=== PATIENT | female | born 1995 ===

== ENCOUNTER 2019-09-20 15:47 | Outpatient (CLI) | payer BC ==
[~2019-09-20] VITALS: Ht 165.1 cm; Wt 110.0 kg
--- NOTE | 2019-09-20 15:40 | NUR ---
SALOMÓN ESTRADA I presented to unit via from ED, accompanied by self, with c/o FELL ON ICE. SALOMÓN ESTRADA I weighed, gowned, voided, and to bed. EFHM and TOCO applied, VS taken. SALOMÓN ESTRADA I oriented to bed controls, call light, TV, heat, and A/C controls.
--- NOTE | 2019-09-20 16:08 | NUR ---
dr castillo notified of patient arrival, c/o and status. monitor observantly for 4 hrs. call with changes or contractions.
[2019-09-20 16:45] LABS: BILIRUBIN,URINE NEGATIVE (NEGATIVE); CLARITY,URINE CLEAR; COLOR,URINE YELLOW; GLUCOSE, URINE (UA) NEGATIVE (NEGATIVE); KETONES,URINE NEGATIVE (NEGATIVE); LEUKOCYTE ESTERASE ,URINE NEGATIVE (NEGATIVE); NITRITE,URINE NEGATIVE (NEGATIVE); PROTEIN,URINE NEGATIVE (NEGATIVE)
--- NOTE | 2019-09-20 16:50 | NUR ---
resting semifowler watching TV, smiling and talking animated with RN, denies further need or c/o. fresh ice water placed at bedside, reviewed fhr tracing with patient, verbalized understanding.
[2019-09-20 16:54] LABS: BACTERIA,URINE FEW /HPF
[2019-09-20 16:55] VITALS: BP 127/75
[2019-09-20 19:50] VITALS: BP 123/81
[2019-09-20 19:59] VITALS: BP 123/81
--- NOTE | 2019-09-21 08:22 | Physician Query-Final Dx ---
LINDSAY MCCARTHY 09/21/19 0822: Clinic Account Progress/Dx Physician Query: Please give diagnosis Please include # weeks gestation Date of Service Sep 20, 2019 at 15:47 MENG BILLY MD 09/21/19 1818: Clinic Account Progress/Dx DIAGNOSIS: Diagnosis False labor at 36 weeks gestation LINDSAY MCCARTHY Sep 21, 2019 08:22 MENG ANTON MD Sep 21, 2019 18:18 POS
== END 2019-09-20 19:59 | disposition home or self-care (01) ==
LOC: WSo 15:47 → LDRP 15:49 → WSo 19:59
PROVIDERS: ATTEND Obstetrics & Gynecology
DX: O47.03 False labor before 37 completed weeks of gestation, third trimester (principal); Z3A.36 36 weeks gestation of pregnancy
CPT/HCPCS: 81000; 87088; 99213

== ENCOUNTER 2019-10-06 00:42 | Inpatient (IN) | payer BC ==
[~2019-10-06] VITALS: Ht 165.1 cm; Wt 111.5 kg
[2019-10-06] VITALS (56 sets, daily range): BP systolic 96–139; BP diastolic 46–84
--- NOTE | 2019-10-06 07:00 | NUR ---
SALOMÓN ESTRADA I presented to unit via AMBULATORY FROM HOME, accompanied by SIGNIFICANT OTHER, FOR SCHEDULED INDUCTION OF LABOR. SALOMÓN ESTRADA I weighed, gowned, voided, and to bed. EFHM and TOCO applied, VS taken. SALOMÓN ESTRADA I oriented to bed controls, call light, TV, heat, and A/C controls.
[2019-10-06] MEDS ORDERED: D5 LR IV SOLUTION 1,000 ML IV ONE (07:03)
[2019-10-06] MEDS ORDERED: OXYTOCIN/NORMAL SALINE 500 ML IV SCH ×2 (07:42→20:37)
[2019-10-06] MEDS ORDERED: OXYTOCIN/NORMAL SALINE 500 ML IV ONE (07:44)
[2019-10-06] MEDS ORDERED: WATER (STERILE) FOR INJECTION 20 ML ONE (07:44)
[2019-10-06] MEDS ORDERED: AMPICILLIN FOR IV USE 2,000 MG VIAL ONE (07:44)
[2019-10-06] MEDS ORDERED: AMPICILLIN FOR IV USE 2,000 MG in WATER (STERILE) FOR INJECTION 14.8 ML IV NR (07:45)
--- NOTE | 2019-10-06 07:48 | History & Physical ---
History and Physical Date Seen by Provider: Oct 06, 2019 Time Seen by Provider: 07:46 This patient is a 24-year-old 1 white female with an EDC of 12 [phone] putting her at 38 weeks gestation. Her is complicated by thrombocytopenia. She presents now for induction of labor. Her GBS culture was positive after 35 weeks gestation. She denies rupture membranes or bleeding. She has occasional contractions and filled baby moving. She's had no other problems with this . Allergies are none Medications are vitamins Medical social and surgical histories are per the antepartum record HEENT exam is normal Neck is supple no lymphadenopathy no thyromegaly Abdomen is gravid soft nontender nondistended Extremities show no clubbing cyanosis. There is no Homans sign. Pelvic exam is pending Lab work is pending patient's platelet count on August 06, 2019 was 104 Assessment and plan 38 weeks gestation with thrombocytopenia and a GBS positive culture. Patient will be induced with Pitocin under the protection of ampicillin for GBS prophylaxis we anticipate a vaginal delivery but would be prepared for if needed 38 week gestation with thrombocytopenia Allergies and Home Medications Allergies Coded Allergies: No Known Drug Allergies (Unverified , 09/20/19) Home Medications No Active Prescriptions or Reported Meds Patient Home Medication List Home Medication List Reviewed: Yes MENG BILLY MD Oct 06, 2019 07:48 POS
[2019-10-06 07:57] LABS: BASOPHILS % (AUTO) 0 % (0-10); EOSINOPHILS # (AUTO) 0.1 10^3/uL (0.0-0.3); EOSINOPHILS % (AUTO) 0 % (0-10); HEMATOCRIT 31 % (35-52); HEMOGLOBIN 9.7 G/DL (11.5-16.0); LYMPHOCYTES # (AUTO) 1.5 X 10^3 (1.0-4.0); LYMPHOCYTES % (AUTO) 13 % (12-44); MEAN CORPUSCULAR HEMOGLOBIN 24 PG (25-34); MEAN CORPUSCULAR HGB CONC 31 G/DL (32-36); MEAN CORPUSCULAR VOLUME 76 FL (80-99); MONOCYTES # (AUTO) 0.8 X 10^3 (0.0-1.0); MONOCYTES % (AUTO) 7 % (0-12); NEUTROPHILS # (AUTO) 9.7 X 10^3 (1.8-7.8); NEUTROPHILS % (AUTO) 80 % (42-75); PLATELET COUNT 161 10^3/uL (130-400); RED CELL DISTRIBUTION WIDTH 15.8 % (10.0-14.5); WHITE BLOOD COUNT 12.1 10^3/uL (4.3-11.0)
[2019-10-06] MEDS: D5 LR IV SOLUTION 1,000 ML IV SCH ×3 (07:57→23:29)
--- NOTE | 2019-10-06 10:11 | NUR ---
THIS RN GIVES DR BILLY AN UPDATED PT REPORT. SVE NO CHANGE. UC 2-3 MIN. PITOCIN RATE AT 16. NO NEW ORDERS RECEIVED.
--- NOTE | 2019-10-06 13:00 | NUR ---
dr castillo updated on pt report. no new orders
[2019-10-06] MEDS ORDERED: SUFENTA 0.6MCG/ML BUPIVA 0.125 100 ML ONE (13:04)
[2019-10-06] MEDS: AMPICILLIN FOR IV USE 1,000 MG in WATER (STERILE) FOR INJECTION 7.4 ML IV SCH ×2 (13:13→16:30)
[2019-10-06] MEDS: LACTATED RINGERS 1,000 ML IV SCH ×2 (13:15→18:37)
[2019-10-06] MEDS ORDERED: ONDANSETRON 4 MG/2 ML (SDV) Z0FRAN IV PRN (14:00)
[2019-10-06] MEDS ORDERED: METOCLOPRAMIDE INJ 10 MG/2 ML (REGLAN) IV PRN (14:00)
[2019-10-06] MEDS ORDERED: NALOXONE 0.4 MG/ML 1 ML (NARCAN) VIAL IV PRN ×2 (14:00)
[2019-10-06] MEDS ORDERED: diphenhydrAMINE 50 MG/ML INJ (BENADRYL) IV PRN (14:00)
[2019-10-06] MEDS ORDERED: EPIDURAL (SUFENTA 0.6MCG/ML BUPIVA 0.125%) 100 ML BAG EPI SCH (14:00)
--- NOTE | 2019-10-06 16:05 | NUR ---
dr castillo updated on pt report pitocin on 38, sve no change /-, uc pattern. dr castillo wants rn to increase to 40 then check cervix at 1700, call with results.
--- NOTE | 2019-10-06 17:10 | NUR ---
this rn calls dr shahid with updated pt report. 2. dr wants rn to turn pitocin off at this time, continue to monitor uc pattern, recheck in 1 hr.
--- NOTE | 2019-10-06 18:07 | NUR ---
dr castillo at bedside to discuss plan of care with pt and SO. primary CS has been declared at 1810. this rn notifies house supp and placed orders. rn preps pt for surgery and obtains consent. questions answered by rn.
[2019-10-06] MEDS ORDERED: DOCU-143 PO (18:20)
[2019-10-06] MEDS ORDERED: OXYC1TAB12 PO (18:20)
[2019-10-06] MEDS ORDERED: IBUP-1780 PO (18:20)
--- NOTE | 2019-10-06 18:20 | Discharge Instructions ---
Discharge Instructions Discharge Medications New, Converted or Re-Newed RX: RX on Chart Patient Instructions Return to The Hospital For: As directed Activity & Diet Discharge Diet: No Restrictions Activity as Tolerated: No Orders-Post D/C & Referrals Follow Up Appt: RTC 1 week for incision check. Call to make follow up appt. for patient in 4 weeks. Wound Care: Remove karen, apply benzoin and steri strips. Activity Per routine post instructions. Please call in RX to patient pharmacy. Diet as tolerated Patient may shower or tub bathe as desired. Continue home meds MENG BILLY MD Oct 06, 2019 18:20 POS
[2019-10-06] MEDS ORDERED: METOCLOPRAMIDE INJ 10 MG/2 ML (REGLAN) ONE (18:23)
[2019-10-06] MEDS ORDERED: CITRIC ACID/SOB CIT (BICITRA) 30 ML UDC ONE (18:23)
[2019-10-06] MEDS ORDERED: FAMOTIDINE 20MG/2ML IV (PEPCID) ONE (18:24)
[2019-10-06] MEDS ORDERED: ceFAZolin 2 GM IV Premixed 50 ML ONE (18:26)
[2019-10-06] MEDS ORDERED: metroNIDAZOLE 500MG/100ML IVPB 100 ML ONE (18:26)
[2019-10-06] MEDS ORDERED: ceFAZolin INJECTION 2,000 MG in WATER (STERILE) FOR INJECTION 10 ML IV ONE (18:30)
[2019-10-06] MEDS ORDERED: METOCLOPRAMIDE INJ 10 MG/2 ML (REGLAN) IV ONE (18:30)
[2019-10-06] MEDS ORDERED: metroNIDAZOLE 500MG/100ML IVPB 100 ML IV ONE (18:30)
[2019-10-06] MEDS ORDERED: FAMOTIDINE 20MG/2ML IV (PEPCID) IV ONE (18:30)
[2019-10-06] MEDS ORDERED: CATHETER FLUSH 10 ML SYR IV PRN (18:30)
[2019-10-06] MEDS ORDERED: CITRIC ACID/SOB CIT (BICITRA) 30 ML UDC PO ONE (18:30)
[2019-10-06] MEDS ORDERED: LIDOCAINE PF 2% 5 ML (XYLOCAINE) VIAL ONE (18:36)
[2019-10-06] MEDS ORDERED: KETAMINE/NaCl 50 MG/5 ML SYRINGE (ED ONLY) ONE (18:52)
--- NOTE | 2019-10-06 18:56 | NUR ---
pt transferred to OR at this time by bed with DIRECTOR OF WORKFORCE DEVELOPMENT and anesthesia staff. FOB gowning in room. this rn answers questions. directs fob to sit outside of OR until ready for him to sit at bedside with pt during surgery
--- NOTE | 2019-10-06 19:00 | NUR ---
pt report given to rain gordillo rn
[2019-10-06] MEDS ORDERED: fentaNYL INJECTION 100 MCG/2 ML AMP ONE ×2 (19:25)
[2019-10-06] MEDS ORDERED: BUPIVACAINE 0.5% 30 ML (SENSORCAINE) VIAL ONE (19:30)
--- NOTE | 2019-10-06 20:08 | OPERATIVE REPORT ---
DATE OF SERVICE: 10/06/2019 PREOPERATIVE DIAGNOSES: Term at 38 weeks' gestation with failure to progress in labor and a history of thrombocytopenia. POSTOPERATIVE DIAGNOSES: Term at 38 weeks' gestation with failure to progress in labor and a history of thrombocytopenia with CPD. OPERATIVE PROCEDURE: Primary low transverse delivery of a viable female with Apgars of 9 and 9 at 1 and 5 minutes respectively, weight of 7 pounds 1 ounce. Cord blood pH of 7.28 and a time of 19:20. OPERATIVE DESCRIPTION: With the patient in supine position under satisfactory epidural analgesia, the patient was prepped and draped in the usual fashion for abdominal surgery. Chester catheter was placed in the urinary bladder during labor that was left to dependent drainage. A Pfannenstiel incision made through skin with scalpel, the patient's abdomen entered in the usual manner. Bladder retractor placed in position, clean scalpel used to make a 4 cm hysterotomy incision transversely across the lower uterine segment that was extended by blunt dissection as well. A vigorous viable female was delivered via the uterine incision. Toth forceps were applied to facilitate the delivery. The infant was bulb suctioned on delivery of the head and again on completion of delivery. Umbilical cord was doubly clamped and cut and the passed to the pediatric nurse in attendance for delivery. Cord bloods were obtained. Placenta delivered spontaneously Gaines. It was normal with a 3-vessel cord. The uterus was exteriorized and wiped clean with a wet laparotomy sponge. Uterine incision closed with a running locked suture of 2-0 Vicryl. The uterus was quite atonic, quite boggy responding only minimally to the Pitocin. A modified B-Villanueva suture was placed using 2-0 chromic sutures in the usual modified fashion for a B-Villanueva. This compressed uterus nicely and controlled the blood loss at that point. The uterus was now returned to the abdominal cavity. All blood clot and debris removed from the abdominal cavity. Sponge and needle counts correct, hemostasis assured. The anterior parietal peritoneum was closed with running suture of 2-0 Vicryl. Rectus muscles were closed with 2-0 Vicryl, subcutaneous tissue with 2-0 Vicryl and the skin was stapled. Sponge and needle counts were correct on completion of the procedure. Estimated blood loss was 500 mL. The patient tolerated the procedure well and was transferred to the recovery room in stable condition. The had been taken stable to the full term nursery under the care of the pediatric nurse. Job ID: [id number] DocumentID: [id number] Dictated Date: 10/06/2019 19:46:16 Salesman/Owner Date: 10/06/2019 20:07:28 Dictated By: MENG BILLY MD
[2019-10-06] MEDS ORDERED: ONDANSETRON 4 MG/2 ML (SDV) Z0FRAN IVP PRN (20:45)
[2019-10-06] MEDS ORDERED: MEASLES,MUMPS,RUBELLA 1 EA INJ SC ONE (20:45)
[2019-10-06] MEDS ORDERED: TETANUS,DIPTH,PERTUSS P/F (BOOSTRIX) 0.5 ML VIAL IM ONE (20:45)
--- NOTE | 2019-10-06 21:00 | NUR ---
Pt. transferred to PP room 308 via bed from OB OR, accompanied by infant, S.O, and staff. Pt. oriented to room, call light, and thermostat. fresh ice water provided. PP folder given and explained. No s/s of distress noted. Visitors at bedside.
[2019-10-06] MEDS ORDERED: DOCUSATE SODIUM 100 MG (COLACE) CAP PO ONE (21:07)
[2019-10-06] MEDS ORDERED: KETOROLAC 30 MG/ML VIAL ONE (21:07)
[2019-10-06] MEDS: KETOROLAC 30 MG/ML VIAL IVP SCH (21:11)
[2019-10-06] MEDS: DOCUSATE SODIUM 100 MG (COLACE) CAP PO SCH ×2 (21:11→21:15)
[2019-10-06] MEDS: oxyCODONE/APAP 10/325MG (PERCOCET 10) TABLET PO PRN (21:46)
--- NOTE | 2019-10-06 23:00 | NUR ---
Pt. assisted up to bathroom, ambulated without difficulty. Positive void noted.
[2019-10-07] VITALS (14 sets, daily range): BP systolic 103–150; BP diastolic 56–86
--- NOTE | 2019-10-07 00:45 | NUR ---
Pt uses call light to get up to void, rn to bedside to assist, pt pulls bedding back, large amount of blood noted on gown, rn performs fundal massage, multiple large clots expressed, pink peripad saturated, mesh underwear saturated, white aurea pad saturated, clots slow, bleeding slows. RN leaves room, 0047 called per this rn with reports of bleeding and current iv infusion being maintenance flluids, orders for methergine IM X1 now and start a one time bag of pitocin at 100ml/hr at this time. Orders to update physician if bleeding persists. This rn voiced understanding.
[2019-10-07] MEDS ORDERED: METHYLERGONOVINE 0.2 MG/ML (METHERGINE) AMP ONE (00:50)
--- NOTE | 2019-10-07 01:20 | NUR ---
After inj, and pit initiation and continued fundal massage, noted ebl 970ml at this time. Will cont to monitor. Pt hurting, Pts primary RN Dieudonne RN admin medication, see emar. Pericare, pads changed, bleeding to be reevaluated again, pt connected to vs machine for 15minute readings. Current readings wnl, see int.
[2019-10-07] MEDS: oxyCODONE/APAP 10/325MG (PERCOCET 10) TABLET PO PRN ×3 (01:24→17:17)
[2019-10-07] MEDS ORDERED: OXYTOCIN/NORMAL SALINE 500 ML IV ONE (01:45)
[2019-10-07] MEDS ORDERED: METHYLERGONOVINE 0.2 MG/ML (METHERGINE) AMP IM ONE ×2 (01:45→02:15)
--- NOTE | 2019-10-07 01:50 | NUR ---
RN at bedside to reassess bleeding after 30 min. Pads changed and weight. Additional 100ml blood loss. 0158-This RN notified Dr. Rajan of 970ml EBL and most recent saturated pad being worn for 30min with an additional EBL of 100ml and patient needing something for pain. Orders received to repeat 0.2mg methergine injection, and demerol 150mg with 25mg phenergan IM for pain.
[2019-10-07] MEDS ORDERED: PROMETHAZINE INJ 25 MG/ML (PHENERGAN) AMP ONE (02:05)
[2019-10-07] MEDS ORDERED: MEPERIDINE (DEMEROL) INJ 100 MG/ML ONE (02:05)
[2019-10-07] MEDS ORDERED: MEPERIDINE (DEMEROL) INJ 100 MG/ML IM ONE (02:15)
[2019-10-07] MEDS ORDERED: PROMETHAZINE INJ 25 MG/ML (PHENERGAN) AMP IM ONE (02:15)
--- NOTE | 2019-10-07 02:30 | NUR ---
RN at bedside to reassess bleeding. Fundus firm without massage 1 below umbilicus, no clots expressed, scant bleeding.
--- NOTE | 2019-10-07 03:15 | NUR ---
RN at bedside to reassess patient bleeding. Fundus firm without massage,1 below umbilicus, no clots expressed, light bleeding. 85 EBL from 0200 to 0315.
--- NOTE | 2019-10-07 05:15 | NUR ---
Placed patient on bedpan due to complaints of dizziness but not able to void. Pericare and pads changed. 55 EBL from 0315 to 0530. Fundus firm, No clots noted.
--- NOTE | 2019-10-07 06:15 | NUR ---
Pt. ambulated to and from bathroom with standby assist without difficulty. Positive void noted. Pt. denied feeling like she was going to pass out. Light rubra bleeding, no clots noted.
[2019-10-07] MEDS: KETOROLAC 30 MG/ML VIAL IVP SCH (06:30)
[2019-10-07] MEDS: D5 LR IV SOLUTION 1,000 ML IV SCH (06:33)
--- NOTE | 2019-10-07 08:06 | Anesthesia-Regional Post-Op ---
Regional Patient Condition Mental Status: Alert, Oriented x3 Circulation: Same as Pre-Op Headache: Absent Sensation: Full Recovery Motor Block: Absent Post Op Complications Complications None Follow Up Care/Instructions Patient Instructions None needed. Anesthesia/Patient Condition Patient is doing well, no complaints, stable vital signs, no apparent adverse anesthesia problems. No complications reported per nursing. D/C home per [facility] Criteria: TRESSA De Dios CRNA Oct 07, 2019 08:06 POS
--- NOTE | 2019-10-07 08:51 | Progress Note ---
Standard Progress Note Progress Notes/Assess & Plan Date Seen by a Provider: Oct 07, 2019 Time Seen by a Provider: 08:46 Progress/Assessment & Plan This patient is without complaint. She is ambulating, voiding, tolerating oral intake well and has adequate pain control. She denies chest pain, denies shortness of breath, denies nausea vomiting, and denies headache, reports that her bleeding has essentially resolved. Vital Signs Date Time Temp Pulse Resp B/P (MAP) Pulse Ox O2 Delivery O2 Flow Rate FiO2 10/07/19 05:00 105 16 140/86 (104) 99 Room Air 10/07/19 04:05 37.2 94 16 138/71 (93) 98 Room Air 10/07/19 03:00 104 16 137/82 (100) 98 Room Air 10/07/19 02:45 110 16 150/86 (107) 99 Room Air 10/07/19 02:30 86 16 127/65 (85) 99 Room Air 10/07/19 02:15 83 16 130/83 (99) 99 Room Air 10/07/19 02:00 104 16 125/82 (96) 100 Room Air 10/07/19 01:45 86 16 118/82 (94) 98 Room Air 10/07/19 01:30 89 16 124/78 (93) 99 Room Air 10/07/19 01:05 88 16 109/56 (73) 98 Room Air 10/07/19 00:00 36.8 100 16 118/60 (79) 100 Room Air 10/06/19 22:00 37.1 80 18 135/61 (85) 100 Room Air 10/06/19 20:40 36.3 14 119/70 (86) 100 Room Air 10/06/19 20:25 36.2 22 119/72 (88) 100 Room Air 10/06/19 20:10 36.4 17 96/46 (63) 100 Room Air 10/06/19 19:55 36.2 12 114/50 (71) 100 Room Air 10/06/19 18:45 37.1 109 18 127/77 (94) Room Air 10/06/19 18:30 107 139/84 (102) Room Air 10/06/19 18:15 91 122/69 (86) Room Air 10/06/19 18:00 87 129/72 (91) Room Air 10/06/19 17:45 84 16 112/55 (74) Room Air 10/06/19 17:30 96 120/63 (82) Room Air 10/06/19 17:15 36.7 78 120/76 (91) Room Air 10/06/19 17:00 70 106/59 (75) Room Air 10/06/19 16:45 72 115/63 (80) Room Air 10/06/19 16:30 73 111/61 (78) Room Air 10/06/19 16:15 81 115/72 (86) Room Air 10/06/19 16:00 36.6 80 139/64 (89) Room Air 10/06/19 15:45 74 116/56 (76) Room Air 10/06/19 15:30 83 16 131/72 (91) Room Air 10/06/19 15:15 88 109/60 (76) Room Air 10/06/19 15:00 75 112/61 (78) Room Air 10/06/19 14:45 77 112/56 (74) Room Air 10/06/19 14:30 36.3 80 16 122/83 (96) 100 Room Air 10/06/19 14:25 95 139/70 (93) 100 Room Air 10/06/19 14:20 86 130/64 (86) 98 Room Air 10/06/19 14:15 94 125/62 (83) 98 Room Air 10/06/19 14:10 111 129/64 (85) 96 Room Air 10/06/19 14:05 73 127/66 (86) 100 Room Air 10/06/19 14:00 75 126/64 (84) 97 Room Air 10/06/19 13:57 81 129/57 (81) Room Air 10/06/19 13:54 90 130/71 (90) Room Air 10/06/19 13:51 103 128/67 (87) Room Air 10/06/19 13:48 109 134/75 (94) 100 Room Air 10/06/19 13:45 97 18 134/77 (96) 100 Room Air 10/06/19 13:30 86 130/72 (91) Room Air 10/06/19 13:15 36.4 74 122/72 (89) Room Air 10/06/19 13:00 74 135/77 (96) Room Air 10/06/19 12:45 81 18 117/76 (90) Room Air 10/06/19 12:30 Room Air 10/06/19 12:15 Room Air 10/06/19 12:00 78 121/65 (83) Room Air 10/06/19 11:45 79 120/64 (82) Room Air 10/06/19 11:30 83 118/57 (77) Room Air 10/06/19 11:15 36.7 88 128/64 (85) Room Air 10/06/19 11:00 82 120/66 (84) Room Air 10/06/19 10:45 73 115/69 (84) Room Air 10/06/19 10:30 98 16 133/60 (84) Room Air 10/06/19 10:15 73 122/69 (86) Room Air 10/06/19 10:00 75 131/71 (91) Room Air 10/06/19 09:45 91 119/79 (92) Room Air 10/06/19 09:30 74 120/64 (82) Room Air 10/06/19 09:15 36.3 71 125/64 (84) Room Air 10/06/19 09:00 82 118/62 (80) Room Air I & O 10/07/19 07:00 Intake Total 4025 ml Output Total 4670 ml Balance -645 ml Vital Signs are stable. Patient is afebrile. Her pulse is covering around 100 The abdomen is benign. The surgical incision is clean dry and intact. The uterus is firm below the umbilicus nontender. Extreme show no clubbing cyanosis. There is no Homans sign. There is some pretibial pitting edema that is normal. Assessment and plan operative day number 1 status post primary d elivery for failure to progress in labor. Normal blood loss for the however she did have significant uterine atony required a modified B Villanueva suture. Patient did experience significant blood loss after her surgical recovery - that responded to ecbolic medication. She will have routine convalescence care from this point MENG BILLY MD Oct 07, 2019 08:51 POS
[2019-10-07] MEDS: DOCUSATE SODIUM 100 MG (COLACE) CAP PO SCH ×2 (09:15)
--- NOTE | 2019-10-07 09:15 | NUR ---
initial shift assessment completed, see interventions for further. abd incision MG. clips D/I. incision edges well approximated, no sx's of infection noted.
--- NOTE | 2019-10-07 09:20 | NUR ---
assisted up to BR. scant vaginal bleeding noted on v-pad.
--- NOTE | 2019-10-07 09:30 | NUR ---
up to shower. s/o and remain @ side.
[2019-10-07] MEDS: IBUPROFEN 800 MG (MOTRIN) TAB PO SCH ×2 (12:45→17:18)
[2019-10-08 00:18] VITALS: BP 109/72
[2019-10-08] MEDS: IBUPROFEN 800 MG (MOTRIN) TAB PO SCH ×2 (00:19→06:21)
[2019-10-08] MEDS: DOCUSATE SODIUM 100 MG (COLACE) CAP PO SCH (00:19)
--- NOTE | 2019-10-08 07:55 | NUR ---
shift assessment completed. vss skin color pink tones. resp unlabored with no c/o's of shortness of breath. HRRR at 123 beats/min. abd soft with positive bowel sounds in all quads. abdominal incision clean dry and intact. pt moves all extremities actively. mild pitting edema pre tibial. pt reports pain level 3 when moving and zero when resting. reports pain as soreness but denies need for pain medication. appropriate bonding noted.
[2019-10-08 08:00] VITALS: BP 119/55
--- NOTE | 2019-10-08 08:00 | NUR ---
dr castillo here, exam done and pt may discharge to home
--- NOTE | 2019-10-08 08:23 | Progress Note ---
Standard Progress Note Progress Notes/Assess & Plan Date Seen by a Provider: Oct 08, 2019 Time Seen by a Provider: 08:22 Progress/Assessment & Plan This patient is without complaint. She is ambulating, voiding, tolerating oral intake well and has adequate pain control. She denies chest pain, denies shortness of breath, denies nausea vomiting, and denies headache, reports that her bleeding has essentially resolved. Vital Signs Date Time Temp Pulse Resp B/P (MAP) Pulse Ox O2 Delivery O2 Flow Rate FiO2 10/07/19 05:00 105 16 140/86 (104) 99 Room Air 10/07/19 04:05 37.2 94 16 138/71 (93) 98 Room Air 10/07/19 03:00 104 16 137/82 (100) 98 Room Air 10/07/19 02:45 110 16 150/86 (107) 99 Room Air 10/07/19 02:30 86 16 127/65 (85) 99 Room Air 10/07/19 02:15 83 16 130/83 (99) 99 Room Air 10/07/19 02:00 104 16 125/82 (96) 100 Room Air 10/07/19 01:45 86 16 118/82 (94) 98 Room Air 10/07/19 01:30 89 16 124/78 (93) 99 Room Air 10/07/19 01:05 88 16 109/56 (73) 98 Room Air 10/07/19 00:00 36.8 100 16 118/60 (79) 100 Room Air 10/06/19 22:00 37.1 80 18 135/61 (85) 100 Room Air 10/06/19 20:40 36.3 14 119/70 (86) 100 Room Air 10/06/19 20:25 36.2 22 119/72 (88) 100 Room Air 10/06/19 20:10 36.4 17 96/46 (63) 100 Room Air 10/06/19 19:55 36.2 12 114/50 (71) 100 Room Air 10/06/19 18:45 37.1 109 18 127/77 (94) Room Air 10/06/19 18:30 107 139/84 (102) Room Air 10/06/19 18:15 91 122/69 (86) Room Air 10/06/19 18:00 87 129/72 (91) Room Air 10/06/19 17:45 84 16 112/55 (74) Room Air 10/06/19 17:30 96 120/63 (82) Room Air 10/06/19 17:15 36.7 78 120/76 (91) Room Air 10/06/19 17:00 70 106/59 (75) Room Air 10/06/19 16:45 72 115/63 (80) Room Air 10/06/19 16:30 73 111/61 (78) Room Air 10/06/19 16:15 81 115/72 (86) Room Air 10/06/19 16:00 36.6 80 139/64 (89) Room Air 10/06/19 15:45 74 116/56 (76) Room Air 10/06/19 15:30 83 16 131/72 (91) Room Air 10/06/19 15:15 88 109/60 (76) Room Air 10/06/19 15:00 75 112/61 (78) Room Air 10/06/19 14:45 77 112/56 (74) Room Air 10/06/19 14:30 36.3 80 16 122/83 (96) 100 Room Air 10/06/19 14:25 95 139/70 (93) 100 Room Air 10/06/19 14:20 86 130/64 (86) 98 Room Air 10/06/19 14:15 94 125/62 (83) 98 Room Air 10/06/19 14:10 111 129/64 (85) 96 Room Air 10/06/19 14:05 73 127/66 (86) 100 Room Air 10/06/19 14:00 75 126/64 (84) 97 Room Air 10/06/19 13:57 81 129/57 (81) Room Air 10/06/19 13:54 90 130/71 (90) Room Air 10/06/19 13:51 103 128/67 (87) Room Air 10/06/19 13:48 109 134/75 (94) 100 Room Air 10/06/19 13:45 97 18 134/77 (96) 100 Room Air 10/06/19 13:30 86 130/72 (91) Room Air 10/06/19 13:15 36.4 74 122/72 (89) Room Air 10/06/19 13:00 74 135/77 (96) Room Air 10/06/19 12:45 81 18 117/76 (90) Room Air 10/06/19 12:30 Room Air 10/06/19 12:15 Room Air 10/06/19 12:00 78 121/65 (83) Room Air 10/06/19 11:45 79 120/64 (82) Room Air 10/06/19 11:30 83 118/57 (77) Room Air 10/06/19 11:15 36.7 88 128/64 (85) Room Air 10/06/19 11:00 82 120/66 (84) Room Air 10/06/19 10:45 73 115/69 (84) Room Air 10/06/19 10:30 98 16 133/60 (84) Room Air 10/06/19 10:15 73 122/69 (86) Room Air 10/06/19 10:00 75 131/71 (91) Room Air 10/06/19 09:45 91 119/79 (92) Room Air 10/06/19 09:30 74 120/64 (82) Room Air 10/06/19 09:15 36.3 71 125/64 (84) Room Air 10/06/19 09:00 82 118/62 (80) Room Air I & O 10/07/19 07:00 Intake Total 4025 ml Output Total 4670 ml Balance -645 ml Vital Signs are stable. Patient is afebrile. Her pulse is covering around 100 The abdomen is benign. The surgical incision is clean dry and intact. The uterus is firm below the umbilicus nontender. Extreme show no clubbing cyanosis. There is no Homans sign. There is some pretibial pitting edema that is normal. Assessment and plan operative day number 1 status post primary d elivery for failure to progress in labor. Normal blood loss for the however she did have significant uterine atony required a modified B Villanueva suture. Patient did experience significant blood loss after her surgical recovery - that responded to ecbolic medication. She will have routine convalescence care from this point October 08, 2019 Patient is without complaint. She is ambulating, voiding, tolerating oral intake well and has good pain control. Patient is requesting discharge home. Vital Signs Date Time Temp Pulse Resp B/P (MAP) Pulse Ox O2 Delivery O2 Flow Rate FiO2 10/08/19 00:18 36.9 95 18 109/72 (84) 98 Room Air 10/07/19 19:10 37.3 105 18 103/57 (72) 99 Room Air 10/07/19 15:00 36.4 112 18 127/72 (90) 97 Room Air 10/07/19 09:15 37.0 95 18 119/72 (88) 99 Room Air I & O 10/08/19 07:00 Intake Total 700 ml Balance 700 ml Vital signs are stable. Patient is afebrile. Fundus is firm below the umbilicus and nontender. The surgical incision is clean dry and intact. Extremities show clubbing cyanosis. There is no Homans sign. There is some pretibial pitting edema that is normal. Assessment and plan postoperative day number 2 status post primary delivery doing well. Plan is for discharge home with follow-up in clinic Final Diagnosis 38 week primary delivery MENG BILLY MD Oct 08, 2019 08:23 POS
--- NOTE | 2019-10-08 08:30 | NUR ---
pt up to shower, denies need for assistance.
--- NOTE | 2019-10-08 09:30 | NUR ---
karen removed and steri strips applied. pt reports office appointment for [phone] on friday for incision check
--- NOTE | 2019-10-08 11:15 | NUR ---
home care instructions reviewed with pt and S/O. pain medications reviewed. incision care reviewed as well as routine coarse. pt acknowledges understanding of instructions verbally and with her signature.
[2019-10-08 12:10] VITALS: BP 119/55
--- NOTE | 2019-10-08 12:10 | NUR ---
pt discharged to family vehicle accompanied by Tonie MCDONNELLsupervisor rides. belted in rear facing car seat
== END 2019-10-08 12:10 | disposition home or self-care (01) | DRG 787 ==
LOC: LDRP 06:45
PROVIDERS: ADMIT Obstetrics & Gynecology; ATTEND Obstetrics & Gynecology
PROC: 10D00Z1 Extraction of Products of Conception, Low, Open Approach (ICD-10-PCS; principal; 2019-10-06 18:58)
DX: O62.8 Other abnormalities of forces of labor (principal); O99.12 Other diseases of the blood and blood-forming organs and certain disorders involving the immune mechanism complicating childbirth; Z37.0 Single live birth; Z3A.38 38 weeks gestation of pregnancy; O99.824 Streptococcus B carrier state complicating childbirth; B95.1 Streptococcus, group B, as the cause of diseases classified elsewhere
CPT/HCPCS: 36415; 85025; 87081; 90707

== ENCOUNTER → 2021-09-19 | Outpatient (CLI) | payer BC ==
[~2021-09-19] MED LIST: DOCU-143 PO; IBUP-1780 PO; OXYC1TAB12 PO; PNV11TAB5 PO
== END ==
LOC: LABNPT 09:35
PROVIDERS: ATTEND Obstetrics & Gynecology
DX: R80.9 Proteinuria, unspecified (principal)
CPT/HCPCS: 82570; 84156

== ENCOUNTER 2021-09-24 05:31 | Outpatient (CLI) | payer MEDICAID ==
[~2021-09-24] VITALS: Ht 167.7 cm; Wt 100.0 kg
[~2021-09-24 05:31] MED LIST changes: -PNV11TAB5 PO
[2021-09-25] MEDS ORDERED: PNV11TAB5 PO (08:52)
== END 2021-09-25 09:04 | disposition home or self-care (01) ==
LOC: PREOP 05:31
PROVIDERS: ATTEND Obstetrics & Gynecology
DX: Z01.818 Encounter for other preprocedural examination (principal)

== ENCOUNTER 2021-10-01 05:55 | Inpatient (IN) | payer BC, MEDICAID ==
[2021-10-01] VITALS (10 sets, daily range): BP systolic 94–129; BP diastolic 55–84
[~2021-10-01] VITALS: Ht 167.7 cm; Wt 104.0 kg
[~2021-10-01 05:55] MED LIST changes: +PNV11TAB5 PO
[2021-10-01] MEDS ORDERED: ceFAZolin 2 GM IV Premixed 50 ML IV ONE (06:00)
[2021-10-01] MEDS ORDERED: FAMOTIDINE 20MG/2ML IV (PEPCID) IV ONE (06:15)
[2021-10-01] MEDS ORDERED: LACTATED RINGERS 1,000 ML IV PRN (06:15)
[2021-10-01] MEDS ORDERED: METOCLOPRAMIDE INJ 10 MG/2 ML (REGLAN) IV ONE (06:15)
[2021-10-01] MEDS ORDERED: CITRIC ACID/SOB CIT (BICITRA) 30 ML UDC PO ONE (06:15)
[2021-10-01 06:52] LABS: BASOPHILS % (AUTO) 0 % (0-10); HEMOGLOBIN 9.7 g/dL (11.5-16.0)
[2021-10-01 06:54] LABS: EOSINOPHILS # (AUTO) 0.1 10^3/uL (0.0-0.3); EOSINOPHILS % (AUTO) 1 % (0-10); HEMATOCRIT 32 % (35-52); LYMPHOCYTES # (AUTO) 1.8 10^3/uL (1.0-4.0); LYMPHOCYTES % (AUTO) 16 % (12-44); MEAN CORPUSCULAR HEMOGLOBIN 22 pg (25-34); MEAN CORPUSCULAR HGB CONC 30 g/dL (32-36); MEAN CORPUSCULAR VOLUME 74 fL (80-99); MONOCYTES # (AUTO) 0.8 10^3/uL (0.0-1.0); MONOCYTES % (AUTO) 7 % (0-12); NEUTROPHILS # (AUTO) 8.1 10^3/uL (1.8-7.8); NEUTROPHILS % (AUTO) 75 % (42-75); PLATELET COUNT 118 10^3/uL (130-400); WHITE BLOOD COUNT 10.8 10^3/uL (4.3-11.0)
[2021-10-01] MEDS: LACTATED RINGERS 1,000 ML IV PRN ×2 (07:01→07:27)
--- NOTE | 2021-10-01 07:13 | History & Physical-OB ---
OB - Chief Complaint & HPI Date/Time Date of Admission: Date of Admission: Oct 01, 2021 at 05:55 Date seen by a Provider: Oct 01, 2021 Time Seen by a Provider: 07:08 Chief Complaint/History OB-Reason for Admission/Chief: Section Hx : 2 Hx Para: 1 Expected Date of Delivery: Oct 16, 2021 Gestational Age in Weeks: 37 Gestational Age in Days: 6 Indication for : desires repeat Admission Nurse Assessment Rev: Yes History of Labs O pos Antibody neg RI RPR NR HBsAg NR HIV NR GC neg GBS pos Allergies and Home Medications Allergies Coded Allergies: No Known Drug Allergies (Unverified , 09/25/21) Patient Home Medication List Home Medication List Reviewed: Yes Oba046/FA/Omega3/Dha/Fish Oil ( Gummies) 1 Each Tab.chew, 1 EACH PO DAILY, (Reported) Entered as Reported by: KASIA MENARD on 09/25/21 0852 Discontinued Medications Docusate Sodium (Colace) 100 Mg Capsule, 100 MG PO BID Discontinued Reason: No Longer Taking Prescribed by: MENG PEREZ on 10/06/191819 Ibuprofen (Ibuprofen) 800 Mg Tablet, 800 MG PO Q6H PRN for PAIN Discontinued Reason: No Longer Taking Prescribed by: MENG PEREZ on 10/06/191819 Oxycodone HCl/Acetaminophen (Percocet 10-325 mg Tablet) 1 Each Tablet, 1 TAB PO Q4H PRN for PAIN-MODERATE Discontinued Reason: No Longer Taking Prescribed by: MENG PEREZ on 10/06/191819 OB - History Hx of Present Care: Yes Ultrasounds: Normal mid trimester US Obstetrical Complications: Other (Gestational thrombocytopenia) Medical Complications: None Delivery History Adverse Rxn to Tranfusion: No Patient Past Medical History n/a Social History/Family History 2nd Hand Smoke Exposure: No Immunizations Date of Influenza Vaccine: Sep 25, 2021 OB - Admission Exam Physical Exam Vitals: Vital Signs HEENT: NCAT Heart: Rhythm Normal Lungs: Clear Abdomen: Gravid Extremities: Normal Reflexes: Normal Heart Rate: 130's Accelerations: Accelerations Present Decelerations: No Decelerations Short Term Variability: Present Bottle Washer Variability: Average (6-25) Contractions on Admission: >10 Minutes Apart Intensity: Mild Labs Laboratory Tests Test 10/01/21 06:40 Range/Units White Blood Count 10.8 4.3-11.0 10^3/uL Red Blood Count 4.39 3.80-5.11 10^6/uL Hemoglobin 9.7 L 11.5-16.0 g/dL Hematocrit 32 L 35-52 % Mean Corpuscular Volume 74 L 80-99 fL Mean Corpuscular Hemoglobin 22 L 25-34 pg Mean Corpuscular Hemoglobin Concent 30 L 32-36 g/dL Red Cell Distribution Width 16.7 H 10.0-14.5 % Platelet Count 118 L 130-400 10^3/uL Mean Platelet Volume 9.0-12.2 fL Immature Granulocyte % (Auto) 1 % Neutrophils (%) (Auto) 75 42-75 % Lymphocytes (%) (Auto) 16 12-44 % Monocytes (%) (Auto) 7 0-12 % Eosinophils (%) (Auto) 1 0-10 % Basophils (%) (Auto) 0 0-10 % Neutrophils # (Auto) 8.1 H 1.8-7.8 10^3/uL Lymphocytes # (Auto) 1.8 1.0-4.0 10^3/uL Monocytes # (Auto) 0.8 0.0-1.0 10^3/uL Eosinophils # (Auto) 0.1 0.0-0.3 10^3/uL Basophils # (Auto) 0.0 0.0-0.1 10^3/uL Immature Granulocyte # (Auto) 0.1 0.0-0.1 10^3/uL Percent Immature Platelet Fraction 30.3 H 0.0-7.6 % OB - Assessment/Plan/Diagnosis Assessment Assessment: section Admission Dx 26 yo @ 37.6 weeks Gestational Thrombocytopenia Previous Low lying placenta GBS pos Admission Status: Inpatient Order (span 2 midnights) Reason for Inpatient Admission: Repeat cesearean Plan Plan: Section JEANINE MARIN DO Oct 01, 2021 07:13
--- NOTE | 2021-10-01 07:26 | Discharge Inst-Women's Service ---
Discharge Inst-Women's Serv Depart Medication/Instructions New, Converted or Re-Newed RX: Transmitted to Pharmacy Final Diagnosis POD 2 RLTCS Problems Reviewed?: Yes Consults/Follow Up Additional Follow Up: Yes Orders/Referrals Dr. Berger in 7-10 days and in 6 weeks Activity Activity: Activity as Tolerated Driving Instructions: No Driving for 1 Week NO SMOKING: NO SMOKING Nothing Inside Vagina: No Douching, No Cement, No Tampons Diet Discharge Diet: No Restrictions Symptoms to Report to : Bleeding Excessive, Pain Increased, Fever Over 101 Degrees F, Vaginal Bleeding Increase, Questions/Concerns For Any Problems or Questions: Contact Your Physician Skin/Wound Care Infection Signs and Symptoms: Increased Redness, Foul Odor of Wound, Increased Drainage, Skin Itchy or Has a Rash, Increased Swelling, Temperature Above 101 F Operative Area Clean and Dry: Keep Incision Clean/Dry Stitches/[place]/Dermabond: Dermabond, Care of Stitches Bathing Instructions: JEANINE Miranda DO Oct 01, 2021 07:26
[2021-10-01] MEDS ORDERED: ACHD5005 PO (07:27)
[2021-10-01] MEDS ORDERED: DOCU100C37 PO (07:27)
[2021-10-01] MEDS ORDERED: IBUP-844 PO (07:27)
[2021-10-01] MEDS ORDERED: MEASLES,MUMPS,RUBELLA 1 EA INJ SC SCH (07:30)
[2021-10-01] MEDS ORDERED: TETANUS,DIPTH,PERTUSS P/F (BOOSTRIX) 0.5 ML VIAL IM SCH (07:30)
[2021-10-01] MEDS ORDERED: NALOXONE 0.4 MG/ML 1 ML (NARCAN) VIAL IV PRN (07:30)
[2021-10-01] MEDS ORDERED: ONDANSETRON 4 MG/2 ML (SDV) Z0FRAN IVP PRN (07:30)
[2021-10-01] MEDS ORDERED: METHYLERGONOVINE 0.2 MG/ML (METHERGINE) AMP ONE (08:04)
[2021-10-01] MEDS: OXYTOCIN PRE-MIX DRIP 500 ML IV SCH ×2 (08:38→20:44)
[2021-10-01] MEDS: DOCUSATE SODIUM 100 MG (COLACE) CAP PO SCH ×2 (10:42→19:31)
[2021-10-01] MEDS: HYDROcodone/APAP 5 MG/325 MG (LORTAB) TAB PO PRN ×4 (10:43→20:35)
[2021-10-01] MEDS: KETOROLAC 30 MG/ML VIAL IV SCH ×3 (13:59→22:03)
--- NOTE | 2021-10-01 14:26 | OPERATIVE REPORT ---
DATE OF SERVICE: PREOPERATIVE DIAGNOSES: 1. A 26-year-old G2, P1 at 37 weeks and 6 days' gestation. 2. Gestational thrombocytopenia. 3. Previous section. 4. Anterior low lying placenta. POSTOPERATIVE DIAGNOSES: 1. A 26-year-old G2, P1 at 37 weeks and 6 days' gestation. 2. Gestational thrombocytopenia. 3. Previous section. 4. Anterior low lying placenta. PROCEDURE: Repeat low transverse section. SURGEON: Jabari Marin DO TAPE RECORDING MACHINE OPERATOR: Marlyn Grace DNP, was necessary for manipulation and retraction throughout the procedure. ANESTHESIA: Spinal. ESTIMATED BLOOD LOSS: 500 mL. URINE OUTPUT: 100 mL clear at the end of procedure. FLUIDS: 1000 mL lactated Ringer's solution. FINDINGS: A live male weighing 7 pounds 7 ounces, Apgars of 8 and 9. Grossly normal appearing uterus, bilateral fallopian tubes and ovaries. SPECIMEN SENT: Placenta. INDICATIONS FOR PROCEDURE: This 26-year-old female is a patient who had sought her care with Dr. Rajan, discontinued his practice and I assumed her care at the end. We had planned on proceeding with repeat . Risks of the procedure were discussed with the patient in detail in the preoperative area including risk of bleeding, infection, damaging surrounding structures including, but not limited to bowel, bladder, ureter, kidneys, possible need for operation, postoperative complications that may occur, risk from anesthesia and even . After everything was discussed with the patient in detail, consent was obtained, the patient was taken to the operating room. OPERATIVE REPORT IN DETAIL: Once in the operating room, spinal analgesia was found to be adequate, placed in supine position with leftward tilt, prepped and draped in normal sterile fashion. Timeout was performed and anesthesia was tested. I then make a Pfannenstiel skin incision through the previously existing scar using a knife and carried down to underlying fascia using Bovie cautery. The fascial incision extended laterally using Bovie cautery. Superior aspect of fascial incision was then grasped with Ally clamps, tented up and dissected off the underlying rectus muscles. The inferior aspect of fascial incision was then grasped with Ally clamps, tented up and dissected off the underlying rectus muscles. The rectus muscles were then dissected down the midline using blunt traction, which exposed peritoneum, which I entered bluntly and extended using blunt traction. An Iggy ring retractor was placed in the peritoneal incision, which offers excellent lateral sidewall retraction. I identified the lower uterine segment, which was found to be thinned out and make a low transverse incision to the vesicouterine peritoneum and bluntly dissect the peritoneum off the lower uterine segment, creating a bladder flap. I then proceeded with my myotomy until membranes are visualized, at which point I extended the uterine incision laterally and superiorly using bandage scissors. Amniotomy was then performed using Allis clamp. Clear fluid was noted. was found in vertex presentation. With gentle fundal pressure, the 's head was elevated and delivered through the incision. The nares and oropharynx were bulb suctioned. Nuchal cord was reduced x1. Anterior and posterior shoulders were delivered. The was then brought to the operative field with cord was doubly clamped and cut and infant was handed off to waiting nurses in attendance. Cord blood was collected. 3-vessel cord with intact placenta was delivered spontaneously thereafter. IV Pitocin was initiated to facilitate uterine contraction. Uterine fundus confirmed by manual massage. Uterus was then exteriorized and cleared off endometrial clots and debris. I then proceeded with closing the uterine incision using 0 Vicryl suture in running locked fashion. Second layer of imbricating 0 Monocryl was placed. Excellent hemostasis was noted after doing this. I then placed the uterus back in the pelvis, copiously irrigated the pelvis using normal saline. Once again, there was no active bleeding noted from any of my dissection planes. I placed Interceed antiadhesive over my low transverse incision. I removed the Iggy ring retractor and proceeded with closing the peritoneum using 3-0 Vicryl suture in running fashion. The rectus muscle reapproximated using 3-0 Vicryl suture in interrupted fashion. The fascia was reapproximated using 0 Vicryl suture in running fashion. The subcutaneous tissue was reapproximated using 3-0 plain interrupted subcutaneous stitch and skin reapproximated using 4-0 Monocryl running subcuticular. Dermabond was applied to the incision and sterile dressing was adhesed with white tape. The patient tolerated the procedure well and sent to recovery area in stable condition. Lap and sponge counts were correct at the end of procedure. Instrument counts correct as well. Two grams of Ancef were given preoperatively for infection prophylaxis. Job ID: [id number] DocumentID: [id number] Dictated Date: 10/01/2021 08:52:41 Sanitation Engineer Date: 10/01/2021 14:25:54 Dictated By: JABARI MARIN DO
[2021-10-01] MEDS: CATHETER FLUSH 10 ML SYR IV SCH ×2 (19:32→22:02)
[2021-10-02] MEDS: KETOROLAC 30 MG/ML VIAL IV SCH (01:36)
[2021-10-02] MEDS: CATHETER FLUSH 10 ML SYR IV SCH ×2 (01:36→21:07)
[2021-10-02 04:12] VITALS: BP 112/68
[2021-10-02 05:56] LABS: BASOPHILS # (AUTO) 0.1 10^3/uL (0.0-0.1); BASOPHILS % (AUTO) 0 % (0-10)
[2021-10-02 05:58] LABS: EOSINOPHILS # (AUTO) 0.1 10^3/uL (0.0-0.3); EOSINOPHILS % (AUTO) 1 % (0-10); HEMATOCRIT 29 % (35-52); HEMOGLOBIN 8.7 g/dL (11.5-16.0); LYMPHOCYTES # (AUTO) 1.9 10^3/uL (1.0-4.0); LYMPHOCYTES % (AUTO) 15 % (12-44); MEAN CORPUSCULAR HEMOGLOBIN 22 pg (25-34); MEAN CORPUSCULAR HGB CONC 30 g/dL (32-36); MEAN CORPUSCULAR VOLUME 74 fL (80-99); MONOCYTES # (AUTO) 0.9 10^3/uL (0.0-1.0); MONOCYTES % (AUTO) 7 % (0-12); NEUTROPHILS # (AUTO) 9.9 10^3/uL (1.8-7.8); NEUTROPHILS % (AUTO) 76 % (42-75); PLATELET COUNT 122 10^3/uL (130-400); WHITE BLOOD COUNT 12.9 10^3/uL (4.3-11.0)
[2021-10-02] MEDS: HYDROcodone/APAP 5 MG/325 MG (LORTAB) TAB PO PRN (06:05)
[2021-10-02] MEDS ORDERED: IBUPROFEN 600 MG (MOTRIN) TAB PO ONE (08:42)
[2021-10-02] MEDS: DOCUSATE SODIUM 100 MG (COLACE) CAP PO SCH ×2 (08:45→20:25)
[2021-10-02] MEDS: IBUPROFEN 600 MG (MOTRIN) TAB PO SCH ×3 (08:45→20:25)
[2021-10-02 08:47] VITALS: BP 130/65
--- NOTE | 2021-10-02 11:19 | Postpartum Progress Note ---
Note Note Day # 1 Subjective: Patient is without complaints. Ambulating, voiding. Tolerating a regular diet without nausea or vomiting. Normal lochia. Pain is well controlled with oral pain medications. Objective: Physical Exam: General - Alert and oriented, no apparent distress Abdomen - Soft, appropriately tender to palpation, non-distended, fundus firm at umbilicus; incision c/d/i Extremities - no edema, negative Jenny's bilaterally Assessment: Post- day # 1, status post RLTCS. Recovering well, hemodynamically stable Acute blood loss anemia Plan: Routine care. Encourage breast feeding. Encourage ambulation. Ferrous sulfate supplementation. Plan for discharge tomorrow Vitals - Labs Vital Signs - I&O Vital Signs Date Time Temp Pulse Resp B/P (MAP) Pulse Ox O2 Delivery O2 Flow Rate FiO2 10/02/21 08:47 36.2 90 18 130/65 (86) 99 Room Air 10/02/21 04:12 79 16 112/68 (83) 10/01/21 23:55 71 16 102/62 (75) 10/01/21 19:33 36.0 87 16 106/68 (81) 99 Room Air 10/01/21 14:00 36.9 83 16 104/57 (73) 96 Room Air I & O 10/02/21 07:00 Intake Total 3950 ml Output Total 1100 ml Balance 2850 ml Labs Laboratory Tests 10/02/21 05:15: White Blood Count 12.9H, Red Blood Count 3.91, Hemoglobin 8.7L, Hematocrit 29L, Mean Corpuscular Volume 74L, Mean Corpuscular Hemoglobin 22L, Mean Corpuscular Hemoglobin Concent 30L, Red Cell Distribution Width 17.0H, Platelet Count 122L, Mean Platelet Volume , Immature Granulocyte % (Auto) 1, Neutrophils (%) (Auto) 76H, Lymphocytes (%) (Auto) 15, Monocytes (%) (Auto) 7, Eosinophils (%) (Auto) 1, Basophils (%) (Auto) 0, Neutrophils # (Auto) 9.9H, Lymphocytes # (Auto) 1.9, Monocytes # (Auto) 0.9, Eosinophils # (Auto) 0.1, Basophils # (Auto) 0.1, Immature Granulocyte # (Auto) 0.1, Percent Immature Platelet Fraction 23.3H Microbiology 10/01/21 MRSA Screen - Final, Complete MRSA not isolated LAN TRINH APRN Oct 02, 2021 11:19
[2021-10-02 12:38] VITALS: BP 113/69
[2021-10-02 14:44] VITALS: BP 129/65
--- NOTE | 2021-10-02 15:01 | Anesthesia-Regional Post-Op ---
Regional Patient Condition Mental Status: Alert, Oriented x3 Circulation: Same as Pre-Op Headache: Absent Sensation: Full Recovery Motor Block: Absent Post Op Complications Complications None Follow Up Care/Instructions Patient Instructions None needed. Anesthesia/Patient Condition Patient is doing well, no complaints, stable vital signs, no apparent adverse anesthesia problems. TATIANA MORRIS DO Oct 02, 2021 15:01
[2021-10-02 21:00] VITALS: BP 114/64
[2021-10-03 03:00] VITALS: BP 119/61
[2021-10-03] MEDS: IBUPROFEN 600 MG (MOTRIN) TAB PO SCH ×2 (03:05→08:55)
--- NOTE | 2021-10-03 07:24 | Postpartum Progress Note ---
Note Note Day # 2 Subjective: Patient is without complaints. Ambulating, voiding. Tolerating a regular diet without nausea or vomiting. Normal lochia. Pain is well controlled with oral pain medications. Objective: Physical Exam: General - Alert and oriented, no apparent distress Abdomen - Soft, appropriately tender to palpation, non-distended, fundus firm at umbilicus Extremities - no edema, negative Jenny's bilaterally Incision- c/d/i Assessment: POD 2 RLTCS Acute blood loss anemia Plan: Routine care. Encourage breast feeding. Encourage ambulation. Ferrous sulfate supplementation. Plan for discharge today Vitals - Labs Vital Signs - I&O Vital Signs Date Time Temp Pulse Resp B/P (MAP) Pulse Ox O2 Delivery O2 Flow Rate FiO2 10/03/21 03:00 36.9 85 18 119/61 (80) 98 Room Air 10/02/21 21:00 37.1 100 18 114/64 (81) 98 Room Air 10/02/21 14:44 37.4 80 18 129/65 (86) 98 Room Air 10/02/21 12:38 73 18 113/69 (84) 100 Room Air 10/02/21 08:47 36.2 90 18 130/65 (86) 99 Room Air Labs Microbiology 10/01/21 MRSA Screen - Final, Complete MRSA not isolated JEANINE MARIN DO Oct 03, 2021 07:24
[2021-10-03] MEDS ORDERED: FERR325T18 PO (07:25)
[2021-10-03] MEDS: DOCUSATE SODIUM 100 MG (COLACE) CAP PO SCH (08:53)
[2021-10-03 08:55] VITALS: BP 128/57
[2021-10-03] MEDS ORDERED: BISACODYL 5 MG (DULCOLAX) TABLET PO SCH (09:00)
--- NOTE | 2021-10-03 09:48 | Postpartum Progress Note ---
Note Note Day # 2 Subjective: Patient is without complaints. Ambulating, voiding. Tolerating a regular diet without nausea or vomiting. Normal lochia. Pain is well controlled with oral pain medications. Objective: Physical Exam: General - Alert and oriented, no apparent distress Abdomen - Soft, appropriately tender to palpation, non-distended, fundus firm at umbilicus; incision c/d/i Extremities - no edema, negative Jenny's bilaterally Assessment: Post- day # 2, status post RLTCS. Recovering well, hemodynamically stable Acute blood loss anemia Plan: Routine care. Encourage breast feeding. Encourage ambulation. Ferrous sulfate supplementation. Plan for discharge today Vitals - Labs Vital Signs - I&O Vital Signs Date Time Temp Pulse Resp B/P (MAP) Pulse Ox O2 Delivery O2 Flow Rate FiO2 10/03/21 08:55 36.7 92 16 128/57 (80) 97 Room Air 10/03/21 03:00 36.9 85 18 119/61 (80) 98 Room Air 10/02/21 21:00 37.1 100 18 114/64 (81) 98 Room Air 10/02/21 14:44 37.4 80 18 129/65 (86) 98 Room Air 10/02/21 12:38 73 18 113/69 (84) 100 Room Air Labs Microbiology 10/01/21 MRSA Screen - Final, Complete MRSA not isolated LAN TRINH APRN Oct 03, 2021 09:48
[2021-10-03 10:40] VITALS: BP 128/57
== END 2021-10-03 10:40 | disposition home or self-care (01) | DRG 787 ==
LOC: LDRP 05:55
PROVIDERS: ADMIT Obstetrics & Gynecology; ATTEND Obstetrics & Gynecology
PROC: 10D00Z1 Extraction of Products of Conception, Low, Open Approach (ICD-10-PCS; principal; 2021-10-01 07:30)
DX: O34.211 Maternal care for low transverse scar from previous cesarean delivery (principal); O99.12 Other diseases of the blood and blood-forming organs and certain disorders involving the immune mechanism complicating childbirth; O44.43 Low lying placenta NOS or without hemorrhage, third trimester; D62 Acute posthemorrhagic anemia; O99.824 Streptococcus B carrier state complicating childbirth; Z37.0 Single live birth; Z3A.37 37 weeks gestation of pregnancy; D69.6 Thrombocytopenia, unspecified; O90.81 Anemia of the puerperium
CPT/HCPCS: 36415; 85025; 86850; 86900; 86901; 87081; 88307; 94664